=== PATIENT | female | born 1980 | race Caucasian/White ===

== ENCOUNTER → 2017-04-12 | Outpatient (CLI) | payer BC ==
[2017-04-12 10:54] LABS: Basophils % (A) 0 %; CHCM 32.8; Eosinophils % (A) 2 %; HCT 40.2 % (34.0-46.0); HDW 2.56; HGB 13.1 gm/dL (11.4-16.0); Luc % (Auto) 2; Lymphocytes # (A) 2.2 k/uL (1.0-4.8); Lymphocytes % (A) 33 %; MCH 29.9 pg (25.0-35.0); MCHC 32.5 g/dL (31.0-37.0); Mean Platelet Volume 6.3; Monocytes % (A) 5 %; Neutrophils # (A) 3.9 k/uL (1.3-7.7); Neutrophils % (A) 58 %; RBC 4.37 m/uL (3.80-5.40); RDW 12.8 % (11.5-15.5); WBC 6.7 k/uL (3.8-10.6); WBC (Perox) 7.09
[2017-04-12 10:55] LABS: Eosinophils # (A) 0.2 k/uL (0-0.7); Luc # (Auto) 0.13; Monocytes # (A) 0.3 k/uL (0-1.0)
[2017-04-12 11:15] LABS: ALT 31 U/L (9-52); AST 23 U/L (14-36); Alkaline Phosphatase 45 U/L (38-126); Anion Gap 9 mmol/L; Blood Urea Nitrogen 13 mg/dL (7-17); Calcium 9.5 mg/dL (8.4-10.2); Carbon Dioxide 25 mmol/L (22-30); Chloride 106 mmol/L (98-107); Cholesterol 178 mg/dL (<200); Glucose 84 mg/dL (74-99); HDL Cholesterol 67 mg/dL (40-60); Non-African American GFR(MDRD) >60 (>60 ml/min/1.73 sqM); Potassium 4.9 mmol/L (3.5-5.1); Sodium 140 mmol/L (137-145); Total Bilirubin 0.5 mg/dL (0.2-1.3); Total Protein 6.9 g/dL (6.3-8.2)
[2017-04-12 13:17] LABS: Erythrocyte Sedimentation Rate 4 mm/hr (0-20)
== END | disposition home or self-care (01) ==
LOC: LABWHC1 10:12
PROVIDERS: ATTEND Internal Medicine
DX: Z00.00 Encounter for general adult medical examination without abnormal findings (principal); E78.5 Hyperlipidemia, unspecified; M79.7 Fibromyalgia; K58.9 Irritable bowel syndrome, unspecified
CPT/HCPCS: 36415; 80053; 80061; 84439; 84443; 85025; 85652

== ENCOUNTER → 2018-11-17 | Outpatient (CLI) | payer BC | END | disposition home or self-care (01) | LOC: LABWHC1 09:02 | PROVIDERS: ATTEND Otolaryngology | DX: J30.89 Other allergic rhinitis (principal) | CPT/HCPCS: 36415 ==

== ENCOUNTER 2020-11-19 06:58 | Day surgery (SDC) | payer BC ==
[2020-11-18 12:02] VITALS: BMI 21.1
[~2020-11-19 06:58] MED LIST: DEXAMETHASONE SOD PHOSPHATE 4 MG/ML 1 ML VIAL IV ONE; LACTATED RINGERS 1,000 ML IV SCH; ONDANSETRON 4 MG/2 ML VIAL IVP ONE; Pre Op ABX Message 1 EACH MISC MISCELLANE ONE
[2020-11-19] MEDS ORDERED: LIDOCAINE 1% (10MG/ML) FOR IV START INTRADERMA ONE (07:40)
[2020-11-19] MEDS ORDERED: SCOPOLAMINE 1.5MG/72HR PATCH TRANSDERM ONE (07:43)
[2020-11-19] MEDS ORDERED: MIDAZOLAM 2 MG/2 ML VIAL IV ONE (07:43)
[2020-11-19] MEDS ORDERED: MIDAZOLAM 2 MG/2 ML VIAL ONE (08:17)
[2020-11-19] MEDS ORDERED: ROCURONIUM 10 MG/ML (5 ML VIAL) IV ONE (08:17)
[2020-11-19] MEDS ORDERED: SUCCINYLCHOLINE CHLORIDE 100 MG/5 ML SYR IV ONE (08:17)
[2020-11-19] MEDS ORDERED: NEOSTIGMINE 1 MG/ML 10 ML VIAL ONE (08:17)
[2020-11-19] MEDS ORDERED: KETOROLAC 15 MG/ML 1 ML VIAL ONE (08:17)
[2020-11-19] MEDS ORDERED: GLYCOPYRROLATE 0.2 MG/ML 2 ML VIAL ONE (08:17)
[2020-11-19] MEDS ORDERED: PROPOFOL 10 MG/ML 20 ML VIAL IV ONE (08:17)
[2020-11-19] MEDS ORDERED: fentaNYL (PF) 50 MCG/ML 2 ML AMP ONE (08:17)
[2020-11-19] MEDS ORDERED: BUPIVACAINE (PF) 0.25% 30 ML VIAL SQ ONE ×2 (08:21→08:54)
[2020-11-19 09:16] VITALS: TEMP 97.1
--- NOTE | 2020-11-19 09:16 | P.OP ---
Date of Procedure: 11/19/20 Preoperative Diagnosis: Undesired fertility Postoperative Diagnosis: Same, normal-appearing female pelvis Procedure(s) Performed: Laparoscopic tubal ligation with Filshie clips Anesthesia: YE Surgeon: Jyothi Armenta Estimated Blood Loss (ml): 20 IV fluids (ml): 300 Urine output (ml): 300 Pathology: none sent Condition: stable Disposition: PACU Operative Findings: Normal-appearing tubes and ovaries, no evidence of endometriosis or pelvic adhesions. Description of Procedure: Patient is brought to the operating suite where a general anesthetic is administered without difficulty. She's placed in the dorsal lithotomy position, cervix and vagina, perineal body and abdomen are all prepped and draped in usual sterile fashion. The appropriate timeout is performed to assure proper patient and procedural identification. Urine hCG is negative. Examination under anesthesia reveals a small anteverted uterus, negative adnexa bilaterally. Bladder is drained for approximate 300 mL of clear yellow urine. Speculum was placed into the vagina, anterior lip of the cervix is grasped with a long Allis clamp and the large acorn cannula is placed, and attached to the Allis clamp. Speculum is removed. Attention is now drawn to the abdomen. A small infraumbilical incision is made, there is needle is placed and placement is checked with hanging drop technique. Abdomen is insufflated under low filling pressures of approximate 6 mmHg for a total of 2.0 L of CO2 gas. Recent needle was removed. Trocar is then placed and placement is noted to be atraumatic. Uterus is placed in the retroverted position, a second incision is made suprapubically under direct visualization the trochars placed, placement again atraumatic. Uterus now placed in the anteverted lateral traction. The right fallopian tube is visualized in its entirety. A Filshie clip is placed in the isthmic portion of the tube with care to traverse the entire diameter of the tube into the mesal salpinx. The same procedure is carried out contralaterally on the left tube. Fimbriated ends identified bilaterally. Excellent placement is inspection of the abdomen and pelvis is then performed and is negative. CO2 gas was allowed to diffuse. Instruments are removed under direct visualization and the fascial defects are clean and dry. 4-0 undyed Monocryl is used in a subcuticular manner to close the skin. Steri-Strips and Mastisol are applied to the wound. The incisions are then injected with 11 mL total of quarter percent Marcaine without epinephrine to aid in postoperative analgesia. Instrumentation was removed from the vagina, cervix is clean and dry. All sponge needle and enhancement counts are correct. Patient is brought back to the recovery room in stable condition with blood pressure 102/71, pulse 66. She is given Toradol prior to leaving the operative suite. She will follow-up with me in the office in 2 weeks.
[2020-11-19] MEDS: HYDROmorphone 0.5 MG/0.5 ML SYRINGE IVP PRN ×4 (09:19→09:53)
[2020-11-19 10:08] VITALS: RESP 18
[2020-11-19 10:26] VITALS: BP 110/78; PULSE 78
== END 2020-11-19 11:19 | disposition home or self-care (01) ==
LOC: OR 06:58
PROVIDERS: ATTEND Obstetrics & Gynecology
DX: Z30.2 Encounter for sterilization (principal); N85.4 Malposition of uterus; J45.909 Unspecified asthma, uncomplicated; R53.82 Chronic fatigue, unspecified; M79.7 Fibromyalgia; K21.9 Gastro-esophageal reflux disease without esophagitis; K58.9 Irritable bowel syndrome, unspecified; I49.8 Other specified cardiac arrhythmias; R00.0 Tachycardia, unspecified; Z82.49 Family history of ischemic heart disease and other diseases of the circulatory system; Z80.3 Family history of malignant neoplasm of breast; Z81.8 Family history of other mental and behavioral disorders; Z98.890 Other specified postprocedural states; H83.09 Labyrinthitis, unspecified ear; Z79.899 Other long term (current) drug therapy; Z88.1 Allergy status to other antibiotic agents; Z88.5 Allergy status to narcotic agent; Z88.8 Allergy status to other drugs, medicaments and biological substances
CPT/HCPCS: 81025; 58671; J2250; J1100; J2710; J2405; J3010; J1885; J0330; J2704; J1170

== ENCOUNTER → 2020-12-25 | Outpatient (CLI) | payer BC ==
--- NOTE | 2020-12-27 11:38 | MM ---
Reason for exam: screening (asymptomatic). Last mammogram was performed 9 years and 4 months ago. History: Family history of premenopausal breast cancer in sister at age 40 and breast cancer in cousin at age 60. Reductions of both breasts, 2000. Took hormonal contraceptives for 26 years beginning at age 21. Physical Findings: A clinical breast exam by your physician is recommended on an annual basis and results should be correlated with mammographic findings. MG 3D Screening Mammo W/Cad Bilateral CC and MLO view(s) were taken. Prior study comparison: September 08, 2011, CAD bilateral diagnostic mammogram. Two underlying isodense circumscribed nodules lateral right breast posterior 8-9 o'clock and middle depth 9-10 o'clock measuring up to 7mm. ASSESSMENT: Incomplete: need additional imaging evaluation, BI-RAD 0 RECOMMENDATION: Special view mammogram and ultrasound of the right breast. (3D) [facility] will attempt to contact patient to return for supplemental views and ultrasound.
== END | disposition home or self-care (01) ==
LOC: RADMAMWWP 16:38
PROVIDERS: ATTEND Obstetrics & Gynecology
DX: Z12.31 Encounter for screening mammogram for malignant neoplasm of breast (principal); Z80.3 Family history of malignant neoplasm of breast
CPT/HCPCS: 77063; 77067

== ENCOUNTER → 2021-01-07 | Outpatient (CLI) | payer BC ==
--- NOTE | 2021-01-08 10:26 | MM ---
Reason for exam: additional evaluation requested from abnormal screening. Last mammogram was performed less than 1 month ago. History: Family history of breast cancer in maternal cousin at age 60. Reductions of both breasts, 2000. Took hormonal contraceptives for 26 years beginning at age 21. Physical Findings: Nurse did not find any significant physical abnormalities on exam. MG 3D Work Up W/Cad RT ML, LM, and CCRM view(s) were taken of the right breast. Prior study comparison: December 25, 2020, bilateral MG 3d screening mammo w/cad. September 08, 2011, CAD bilateral diagnostic mammogram. The breast tissue is heterogeneously dense. This may lower the sensitivity of mammography. Right mammoplasty change. Areas of nodularity, 6mm nodule 10-11 o'clock, posterior ultrasound right. Right 12mm nodule superior 12 o'clock 5.5cm from nipple. This finding is changed when compared with previous exams. These results were verbally communicated with the patient and result sheet given to the patient on 01/07/21. ASSESSMENT: Incomplete: need additional imaging evaluation, BI-RAD 0 RECOMMENDATION: Ultrasound of the right breast.
--- NOTE | 2021-01-08 10:29 | USB ---
Reason for exam: additional evaluation requested from abnormal screening. History: Family history of breast cancer in maternal cousin at age 60. Reductions of both breasts, 2000. Took hormonal contraceptives for 26 years beginning at age 21. US Breast Workup Limited RT Right limited breast ultrasound including focal area of concern, retroareolar and axilla demonstrates a 5 x 2 x 5mm oval, cystic, benign appearing lesion at 10 o'clock, a 3 x 3 x 3mm oval, cystic, benign appearing lesion at 11 o'clock and a 5 x 5 x 4mm oval, solid, hypoechoic lesion at 11 o'clock, indeterminate, suspicious, ultrasound biopsy recommended. These results were verbally communicated with the patient and result sheet given to the patient on 01/07/21. ASSESSMENT: Suspicious, BI-RAD 4 RECOMMENDATION: Ultrasound core biopsy of the right breast. (If biopsy negative follow up 6 month mammogram recommended) Called Dr. Armenta's office with mammographic findings and has scheduled an appointment for the patient with Dr. Baptiste. Biopsy scheduled for 01/10/21 at 9:30. PRELIMINARY REPORT CALLED AND FAXED TO DR. BAPTISTE ON 01/07/21.
== END | disposition home or self-care (01) ==
LOC: RADMAMWWP 14:41
PROVIDERS: ATTEND Obstetrics & Gynecology
DX: N63.15 Unspecified lump in the right breast, overlapping quadrants (principal); N60.01 Solitary cyst of right breast; Z80.3 Family history of malignant neoplasm of breast; Z79.3 Long term (current) use of hormonal contraceptives
CPT/HCPCS: 77061; 77065

== ENCOUNTER → 2021-01-10 | Day surgery (SDC) | payer BC ==
[2021-01-10 09:56] VITALS: RESP 16; TEMP 97.8
[2021-01-10 12:09] VITALS: BP 103/72; PULSE 71
--- NOTE | 2021-01-10 12:12 | USB ---
Please see biopsy report same date. Pathology Results: Benign A. RIGHT BREAST, 11:00 SITE 1, ULTRASOUND GUIDED CORE BIOPSY: Fibrocystic changes including cysts and fibrosis. B. RIGHT BREAST, 11:00 SITE 2, ULTRASOUND GUIDED CORE BIOPSY: Fibrocystic changes including cysts, fibrosis, adenosis, mild usual type ductal hyperplasia and rare calcifications. Recommendation Follow up mammogram of the right breast in 6 months. CARL
--- NOTE | 2021-01-10 12:22 | USB ---
EXAMINATION TYPE: US biopsy breast VAD RT, MG diagnostic mammo RT wo CAD DATE OF EXAM: 01/10/2021 CLINICAL HISTORY: R92.8 ABN MAMMO. TECHNIQUE: Ultrasound guided core biopsies x2 of right breast. COMPARISON: 01/07/2021 FINDINGS: The procedure of ultrasound guided core biopsy was explained to the patient. Benefits, alternatives, and risks were discussed. An informed consent was then obtained. The patient was placed in supine positioning for imaging and for the procedure. The overlying skin was prepped and draped in usual sterile fashion. Lidocaine buffered with bicarbonate was used as anesthetic into the skin and subcutaneous tissue up to area of concern in the right breast. A skin brisa was made with surgical scalpel. Under ultrasound guidance, a 12-gauge Celero biopsy device was used to obtain 2 core samples at 11:00 zone a. Following this, a biopsy clip was left in lesion. An additional complex structure is seen adjacent to this which may represent a cyst. Aspiration was attempted with a 20-gauge needle but was unsuccessful. Thus a core biopsy was performed. Under ultrasound guidance, a 12-gauge Celero biopsy device was used to obtain 2 core samples at 11:00 adjacent to the original lesion. Following this, a biopsy clip was left in lesion. The patient tolerated the procedure well without any immediate complication. The patient was kept in the radiology department for short stay after the procedure and then discharged home in stable condition. Diagnostic mammogram to view was performed which showed two biopsy marker clips at 11:00. IMPRESSION: Successful, uncomplicated ultrasound guided core biopsy of area of concern in the left breast x2 at 11:00. Full pathology results to follow. Pathology Results: Benign A. RIGHT BREAST, 11:00 SITE 1, ULTRASOUND GUIDED CORE BIOPSY: Fibrocystic changes including cysts and fibrosis. B. RIGHT BREAST, 11:00 SITE 2, ULTRASOUND GUIDED CORE BIOPSY: Fibrocystic changes including cysts, fibrosis, adenosis, mild usual type ductal hyperplasia and rare calcifications. Recommendation Follow up mammogram of the right breast in 6 months. CALR
== END ==
LOC: RADUSWWP 09:32
PROVIDERS: ATTEND Surgery
DX: N60.11 Diffuse cystic mastopathy of right breast (principal); N60.21 Fibroadenosis of right breast; R92.1 Mammographic calcification found on diagnostic imaging of breast; N62 Hypertrophy of breast; Z88.1 Allergy status to other antibiotic agents; Z88.5 Allergy status to narcotic agent
CPT/HCPCS: 88305; 77065; 19083; 19084; A4648; J2001

== ENCOUNTER → 2021-05-13 | Outpatient (CLI) | payer BC, OTHER | END | disposition home or self-care (01) | LOC: LABWHC1 08:27 | PROVIDERS: ATTEND Emergency Medicine | DX: Z20.822 Contact with and (suspected) exposure to COVID-19 (principal) | CPT/HCPCS: 87635 ==

== ENCOUNTER → 2021-05-14 | Outpatient (CLI) | payer BC, OTHER | END | disposition home or self-care (01) | LOC: LABWHC1 08:56 | PROVIDERS: ATTEND Emergency Medicine | DX: Z20.822 Contact with and (suspected) exposure to COVID-19 (principal) | CPT/HCPCS: 87635 ==

== ENCOUNTER → 2021-07-14 | Outpatient (CLI) | payer BC ==
--- NOTE | 2021-07-14 11:13 | MM ---
Reason for exam: follow-up at short interval from prior study. Last mammogram was performed 6 months ago. History: Family history of breast cancer in maternal cousin at age 60. Benign US biopsy breast VAD RT of the right breast, January 10, 2021. Benign US biopsy breast add'l VAD RT of the right breast, January 10, 2021. Reductions of both breasts, 2000. Took hormonal contraceptives for 26 years beginning at age 21. Physical Findings: Nurse did not find any significant physical abnormalities on exam. MG 3D Diag Mammo W/Cad RT CC and MLO view(s) were taken of the right breast. Prior study comparison: January 10, 2021, right breast MG diagnostic mammo RT wo CAD. January 07, 2021, right breast MG 3d work up w/cad RT. The breast tissue is heterogeneously dense. This may lower the sensitivity of mammography. Benign appearing calcifications in the right breast. Previous mammotome biopsy in the right breast. There is chronic nodularity in the right breast. These results were verbally communicated with the patient and result sheet given to the patient on 07/14/21. ASSESSMENT: Benign, BI-RAD 2 RECOMMENDATION: Return to routine screening mammogram schedule for both breasts. Back on schedule.
== END | disposition home or self-care (01) ==
LOC: RADMAMWWP 10:12
PROVIDERS: ATTEND Surgery
DX: R92.8 Other abnormal and inconclusive findings on diagnostic imaging of breast (principal); R92.1 Mammographic calcification found on diagnostic imaging of breast; Z80.3 Family history of malignant neoplasm of breast
CPT/HCPCS: 77061; 77065

== ENCOUNTER → 2023-08-16 | Outpatient (CLI) | payer BC ==
--- NOTE | 2023-08-17 22:25 | MM ---
Reason for Exam: Screening (asymptomatic). Last mammogram was performed 1 year(s) and 3 month(s) ago. Patient History: Menarche at age 15. First Full-Term at age 29. Premenopausal. Hormonal Contraceptives, from age 17 until age 40. 2000, Bilateral Reduction. 01/10/2021, Benign Core Biopsy on the right side. 01/10/2021, Benign Core Biopsy on the right side. Maternal cousin had breast cancer, age 60. Last menstrual period: 07/22/2023 Risk Values: Sarah 5 year model risk: 1.9%. NCI Lifetime model risk: 15.5%. Prior Study Comparison: 01/10/2021 Right Diagnostic Mammogram, [facility]. 07/14/2021 Right Diagnostic Mammogram, [facility]. 05/06/2022 Bilateral MG 3D screening mammo w/cad, [facility]. Tissue Density: There are scattered fibroglandular densities. Findings: Analyzed By CAD. Changes of bilateral reduction mammoplasties redemonstrated. 2 microclips right breast from prior biopsies. There is no suspicious group of microcalcifications or new suspicious mass in either breast. Overall Assessment: Benign, BI-RAD 2 Management: Screening Mammogram of both breasts in 1 year. . Patient should continue monthly self-breast exams. A clinical breast exam by your physician is recommended on an annual basis. This exam should not preclude additional follow-up of suspicious palpable abnormalities. Note on Sarah scores and lifetime risk: 1. A Sarah score greater than 3% is considered moderate risk. If this is the case, consider specialist referral to assess eligibility for a risk reducing agent. 2. If overall lifetime risk for the development of breast cancer is 20% or higher, the patient may qualify for future screening with alternating mammogram and breast MRI. Electronically signed and approved by: Cary Elliott M.D. Radiologist
== END | disposition home or self-care (01) ==
LOC: RADMAMWWP 15:43
PROVIDERS: ATTEND Obstetrics & Gynecology
DX: Z12.31 Encounter for screening mammogram for malignant neoplasm of breast (principal); Z80.3 Family history of malignant neoplasm of breast
CPT/HCPCS: 77063; 77067